=== PATIENT | male | born 1960 | race Caucasian/White ===

== ENCOUNTER 2018-01-16 14:03 | Outpatient (REF) | payer MEDICAID, SELFPAY ==
[2018-01-16 21:28] LABS: ALT 22 U/L (12-78); AST 16 U/L (15-37); Albumin 4.1 g/dL (3.4-5.0); Alkaline Phosphatase 65 U/L (46-116); Bilirubin, Direct 0.21 mg/dL (0.00-0.20); Bilirubin, Total 1.1 mg/dL (0.2-1.0)
== END 2018-01-16 14:23 ==
LOC: NCHCN 14:03
PROVIDERS: PCP Nurse Practitioner Family; Visit Provider Family Medicine
DX: R17 Unspecified jaundice (principal)
CPT/HCPCS: 80076

== ENCOUNTER 2018-03-19 09:49 | Outpatient (REF) | payer MEDICAID, SELFPAY ==
[2018-03-19 22:00] LABS: ALT 32 U/L (12-78); AST 20 U/L (15-37); Albumin 3.8 g/dL (3.4-5.0); Alkaline Phosphatase 57 U/L (46-116); Bilirubin, Direct 0.15 mg/dL (0.00-0.20); Bilirubin, Total 0.8 mg/dL (0.2-1.0); Total Protein 6.7 g/dL (6.4-8.2)
[2018-03-21 10:25] LABS: Hepatitis A Antibody IgM Negative (NEGAT); Hepatitis B Core Antibody Negative (NEGAT); Hepatitis B surface Ag Negative (NEGAT); Hepatitis C Ab w Rflx HCV PCR Negative (NEGAT)
== END 2018-03-19 10:09 ==
LOC: NCHCN 09:49
PROVIDERS: PCP Nurse Practitioner Family; Visit Provider Family Medicine
DX: R94.5 Abnormal results of liver function studies (principal)
CPT/HCPCS: 80076; 86704; 86709; 86803; 87340

== ENCOUNTER 2018-07-22 14:27 | Outpatient (REF) | payer MEDICAID, SELFPAY ==
[2018-07-22 21:39] LABS: Anion Gap 9.2 mmol/L (3-11); CO2 28.8 mmol/L (21.0-32.0); Chloride 103 mmol/L (98-107); Potassium 3.9 mmol/L (3.5-5.1); Sodium 141 mmol/L (136-145)
[2018-07-23 10:53] LABS: BUN 10 mg/dL (7-18); CREATININE 0.97 mg/dL (0.70-1.30)
== END 2018-07-22 14:47 ==
LOC: NCHCN 14:27
PROVIDERS: PCP Registered Nurse; Visit Provider Registered Nurse
DX: I10 Essential (primary) hypertension (principal)
CPT/HCPCS: 80051; 84520; 82565

== ENCOUNTER 2020-05-26 15:31 | Outpatient (REF) | payer MEDICAID, SELFPAY ==
[2020-05-26 21:59] LABS: Anion Gap 7.8 mmol/L (3-11); BUN 12 mg/dL (7-18); CO2 28.2 mmol/L (21.0-32.0); CREATININE 1.1 mg/dL (0.70-1.30); Calcium 9.2 mg/dL (8.5-10.1); Chloride 105 mmol/L (98-107); Glucose 111 mg/dL (74-106); Potassium 3.9 mmol/L (3.5-5.1); Sodium 141 mmol/L (136-145)
== END 2020-05-26 15:32 | disposition home or self-care (01) ==
LOC: NCHCN 15:31
PROVIDERS: PCP Registered Nurse; Visit Provider Registered Nurse
DX: I10 Essential (primary) hypertension (principal)
CPT/HCPCS: 80048

== ENCOUNTER 2022-09-11 21:16 | Outpatient (REF) | payer MEDICAID, SELFPAY ==
[2022-09-11 21:48] LABS: ALT 20 U/L (16-63); AST 23 U/L (15-37); Albumin 4.1 g/dL (3.4-5.0); Alkaline Phosphatase 52 U/L (46-116); Anion Gap 6.4 mmol/L (3-11); BUN 11 mg/dL (7-18); Bilirubin, Total 0.8 mg/dL (0.2-1.0); CO2 25.6 mmol/L (21.0-32.0); Calcium 8.8 mg/dL (8.5-10.1); Calculated LDL 120 mg/dL (<100); Chloride 107 mmol/L (98-107); Cholesterol 172 mg/dL (<200); Estimated GFR 84.05 (mL/min/1.73m2); Glucose 111 mg/dL (74-106); HDL Cholesterol 38 mg/dL (40-60); Potassium 4.5 mmol/L (3.5-5.1); Sodium 139 mmol/L (136-145); Total Protein 7.1 g/dL (6.4-8.2); Triglyceride 71 mg/dL (<150)
== END 2022-09-11 21:17 | disposition home or self-care (01) ==
LOC: NCHCN 21:16
PROVIDERS: PCP Registered Nurse; Visit Provider Nurse Practitioner Family
DX: E78.2 Mixed hyperlipidemia (principal); I25.10 Atherosclerotic heart disease of native coronary artery without angina pectoris; Z95.9 Presence of cardiac and vascular implant and graft, unspecified
CPT/HCPCS: 80053; 80061

== ENCOUNTER 2022-11-16 19:39 | Outpatient (REF) | payer MEDICAID, SELFPAY ==
[2022-11-16 18:18] LABS: Calculated LDL 48 mg/dL (<100); Cholesterol 92 mg/dL (<200); HDL Cholesterol 36 mg/dL (40-60); Triglyceride 43 mg/dL (<150)
[2022-11-16 18:22] LABS: Hemoglobin A1C 5.4 % (<5.7)
== END 2022-11-16 19:40 | disposition home or self-care (01) ==
LOC: NCHCN 19:39
PROVIDERS: PCP Registered Nurse; Visit Provider Nurse Practitioner Family
DX: R73.09 Other abnormal glucose (principal); E78.2 Mixed hyperlipidemia
CPT/HCPCS: 80061; 83036

== ENCOUNTER 2023-07-02 17:23 | Outpatient (REF) | payer MEDICAID, SELFPAY ==
[2023-07-02 21:39] LABS: Anion Gap 10.9 mmol/L (3-11); BUN 23 mg/dL (7-18); CO2 27.1 mmol/L (21.0-32.0); CREATININE 1.6 mg/dL (0.70-1.30); Calcium 10.1 mg/dL (8.5-10.1); Chloride 96 mmol/L (98-107); Estimated GFR 47.82 (mL/min/1.73m2); Glucose 124 mg/dL (74-106); Sodium 134 mmol/L (136-145)
[2023-07-03 19:11] LABS: PSA, Screening 22.7 ng/mL (<=4.5)
== END 2023-07-02 17:24 | disposition home or self-care (01) ==
LOC: NCHCN 17:23
PROVIDERS: PCP Registered Nurse; Visit Provider Nurse Practitioner Family
DX: R35.0 Frequency of micturition (principal); R33.8 Other retention of urine
CPT/HCPCS: 80048; 84153; 87077; 87086; 87186

== ENCOUNTER 2023-08-10 12:38 | Outpatient (REF) | payer MEDICARE, MEDICAID, SELFPAY ==
[2023-08-10 16:02] LABS: HCT 44.3 % (40.0-50.0); HGB 14.7 g/dL (13.5-17.5); MCH 29.5 pg (27.0-33.0); MCHC 33.2 % (32.0-36.0); MCV 89 fL (80-95); MPV 10.3 fL (8.0-11.0); Platelet Count 199 10^3/uL (130-400); RBC 4.98 10^6/uL (4.36-5.78); RDW 13.1 % (11.8-14.1); RDW-SD 42.7 fL; WBC 6.32 10^3/uL (4.4-10.8)
[2023-08-10 16:24] LABS: ALT 23 U/L (16-63); AST 17 U/L (15-37); Albumin 3.9 g/dL (3.4-5.0); Alkaline Phosphatase 62 U/L (46-116); Anion Gap 7.9 mmol/L (3-11); BUN 7 mg/dL (7-18); Bilirubin, Total 0.9 mg/dL (0.2-1.0); CO2 29.1 mmol/L (21.0-32.0); CREATININE 1.1 mg/dL (0.70-1.30); Calcium 9.5 mg/dL (8.5-10.1); Calculated LDL 54 mg/dL (<100); Chloride 108 mmol/L (98-107); Cholesterol 104 mg/dL (<200); Glucose 116 mg/dL (74-106); HDL Cholesterol 40 mg/dL (40-60); Potassium 4.5 mmol/L (3.5-5.1); Sodium 145 mmol/L (136-145); Total Protein 7.1 g/dL (6.4-8.2); Triglyceride 52 mg/dL (<150)
[2023-08-10 22:36] LABS: PSA, Diagnostic 4.6 ng/mL (<=4.5)
== END 2023-08-10 12:39 | disposition home or self-care (01) ==
LOC: NCHCN 12:38
PROVIDERS: Urology; PCP Registered Nurse; Visit Provider Nurse Practitioner Family
DX: I25.10 Atherosclerotic heart disease of native coronary artery without angina pectoris (principal)
CPT/HCPCS: 80053; 80061; 85027; 84153

== ENCOUNTER 2023-10-16 14:17 | Outpatient (REF) | payer MEDICARE, SELFPAY | END 2023-10-16 14:18 | disposition home or self-care (01) | LOC: NCHCN 14:17 | PROVIDERS: PCP Registered Nurse; Visit Provider Family Medicine | DX: R30.0 Dysuria (principal) | CPT/HCPCS: 87077; 87086; 87186 ==

== ENCOUNTER 2024-05-13 14:18 | Outpatient (REF) | payer MEDICARE, SELFPAY | END 2024-05-13 14:19 | disposition home or self-care (01) | LOC: NCHCN 14:18 | PROVIDERS: PCP Registered Nurse; Visit Provider Nurse Practitioner Family | DX: R30.0 Dysuria (principal) | CPT/HCPCS: 87086 ==

== ENCOUNTER 2025-03-23 21:16 | Outpatient (REF) | payer MEDICARE, SELFPAY ==
[2025-03-23 22:02] LABS: HCT 47.3 % (40.0-50.0); HGB 16.3 g/dL (13.5-17.5); MCH 29.9 pg (27.0-33.0); MCHC 34.5 % (32.0-36.0); MCV 87 fL (80-95); MPV 10.8 fL (8.0-11.0); Platelet Count 238 10^3/uL (130-400); RBC 5.46 10^6/uL (4.36-5.78); RDW 12.7 % (11.8-14.1); RDW-SD 39.7 fL; WBC 7.42 10^3/uL (4.4-10.8)
[2025-03-23 22:13] LABS: ALT 27 U/L (10-49); AST 27 U/L (<34); Albumin 4.7 g/dL (3.2-5.0); Alkaline Phosphatase 61 U/L (46-116); Anion Gap 9.9 mmol/L (3-11); BUN 12 mg/dL (9-23); Bilirubin, Total 1.00 mg/dL (0.2-1.2); CO2 28.1 mmol/L (20.0-31.0); Calcium 10.7 mg/dL (8.3-10.6); Chloride 105 mmol/L (98-107); Cholesterol 118 mg/dL (<200); Glucose 123 mg/dL (74-106); HDL Cholesterol 35 mg/dL (>40); Potassium 4.0 mmol/L (3.5-5.1); Sodium 143 mmol/L (136-145); Total Protein 7.3 g/dL (5.7-8.2)
== END 2025-03-23 21:17 | disposition home or self-care (01) ==
LOC: NCHCN 21:16
PROVIDERS: PCP Registered Nurse; Visit Provider Nurse Practitioner Family
DX: I25.10 Atherosclerotic heart disease of native coronary artery without angina pectoris (principal); Z13.0 Encounter for screening for diseases of the blood and blood-forming organs and certain disorders involving the immune mechanism
CPT/HCPCS: 80053; 80061; 85027